=== PATIENT | female | born 1975 | race Caucasian/White ===

== ENCOUNTER 2017-01-11 07:46 | Day surgery (SDC) | payer OTHER ==
--- NOTE | 2017-01-10 09:50 | PCM.HPSURG ---
Subjective Date of Service: December 27, 2016 Referring Provider: Admitting Physician: Primary Care Physician: Tasha Freitas Attending Physician: Reji Drake MD Chief Complaint SEE BELOW History of Present Illness Patient: Aurora Doshi Date of : 1975 Visit Type: Pre Op Visit Date: 12/27/2016 09:45 AM This 41 year old female presents for Preop MIS Right Part Hemilami/Microdisc/ Decompress S1. History of Present Illness: 1. Preop MIS Right Part Hemilami/Microdisc/Decompress S1 Aurora Doshi is a 41 year old female referred by Primary Care Provider (PCP) Saji HARRIS who presents today's date 12/27/2016 for a preoperative type of appointment concerning the decision for surgery involving minimally invasive surgery approaching from the right with L5-S1 partial hemilaminectomy, right L5- S1 microdiscectomy & right S1 lateral recess decompression secondary to a diagnosis of right L5-S1 herniated disc, lumbar radiculopathy with right S1 lateral recess stenosis with related complaints of persistent, intractable, & debilitating lower back pain radiating mostly to the right lower extremity with numbness, weakness, & paresthesias. This patient was last seen by Dr. Reji Gaviria M.D. on 11/24/2016 documenting that she is in active and in good health. She had the sudden onset of radiating pain into the right buttock and posterior leg that woke her from sleep on 10/16/2016. She was seen at the urgent care clinic and given an injection of Toradol and sent home with muscle relaxants that failed to control her S1 radicular pain. The patient reported constant pain in the right buttock and posterior leg with episodes of shooting pain starting in the right buttock and running down the posterior leg and into the right heel has now improved only somewhat but is continuing to be persistent.. She developed numbness and paresthesias in an S1 distribution from the buttock to the heel that was most dense in the right heel. The right S1 numbness and paresthesias, started approximately one week after the onset of radicular pain. Because of the severity of the right leg radicular pain she return to the urgent care clinic and was given additional medications, Vicodin and muscle relaxants that helped take the edge of the right S1 radicular pain. She was seen by her primary care provider and noted to have weakness of right ankle plantar flexion and could not stand on her right toes. An MRI scan lumbar spine was obtained 11/04/2016 showing a large disc herniation on the right side at L5-S1 compressing the right S1 root. She was referred urgently to this clinic because of the size of the disc herniation and a progression of numbness and weakness involving the S1 distribution. According to Dr. Drake the patient has lumbar radiculopathy due to lumbar intravertebral disc disorder involving a large disc herniation on the right side at L5-S1, compressing the S1 nerve root & presenting with symptoms of right S1 radiculopathy. He indicated that there is evidence of nerve injury with loss of sensation at the S1 distribution & right ankle weakness to plantar flexion. Consequently because of the size of the disc herniation and presentation he recommended urgent surgical intervention to decompress the nerve root & expedited scheduling of minimally invasive lumbar surgical decompression surgery. Dr. Drake & the patient discussed all the risks and benefits associated with procedure as well as reasonable expectations with regards to surgical outcomes & the patient elected to proceed with surgery as planned. The patient denies any related acute loss of control of bowel or bladder function, saddle paresthesia or anesthesia. The patient has a reported pertinent past medical, surgical, family, & social history for no surgical history, obesity, hypertension, eczema, frequent headaches, & smokes 1 pack per day; with no other then the above known positive history &/or review of all other organ systems. The patient's related complaints have been a serious detriment to their happiness and activities of daily living. Having failed conservative treatment the patient presents today for their decision for surgery appointment involving minimally invasive surgery approaching from the right with L5-S1 partial hemilaminectomy, right L5-S1 microdiscectomy & right S1 lateral recess decompression for treatment of right L5-S1 herniated disc, with lumbar radiculopathy & right S1 lateral recess stenosis; related to persistent, intractable, & debilitating lower back pain radiating to the right lower extremity with numbness, weakness, & paresthesias. The procedure is scheduled to be performed by Dr. Reji Drake M.D. on 01/12/2016. Problem List: Problem Description Upper back strain Astigmatism Low back strain Medical/Surgical/Interim History Reviewed, no change. Last detailed document date:12/27/2016. Family History: Reviewed, no changes. Last detailed document date:12/27/2016. Social History (Reviewed, updated) 12/27/2016 Tobacco use reviewed. Preferred language is Yemeni. The patient does not need an heavy equipment diesel mechanic. Marital Status/Family/Social Support Currently unknown. Smoking status: Current every day smoker. Smoking Status Use Status Type Smoking Status Years Used Total Pack Years yes Cigarette Current every day smoker 20.00 10.00 There is passive smoke exposure. Tobacco type: Cigarette CAFFEINE The patient uses caffeine - 1 cup a day. Allergies: Ingredient Reaction Medication Name Comment NO KNOWN ALLERGIES Reviewed, no changes. Review of Systems System Neg/Pos Details MS Positive Muscle weakness. Integumentary Negative Mrsa and rash. Psych Negative Anxiety and depression. Neuro Negative Dizziness, headache and seizures. ENMT Negative Hearing loss. GI Negative Abdominal pain, constipation, diarrhea, nausea and vomiting. Cardio Negative Chest pain, irregular heartbeat/palpitations, leg swelling and pacemaker. MS Negative Back pain and bone/joint symptoms. Endocrine Negative Weight gain and weight loss. Respiratory Negative Dyspnea, apnea and wheezing. Constitutional Negative Chills and fever. Luis Manuel/Lymph Negative Blood clots. Eyes Negative Double vision and vision loss. Negative Dysuria, urge incontinence and urinary incontinence. Vital Signs Height Time ft in cm Last Measured Height Position % 9:43 AM 5.0 9.00 175.26 12/03/2013 Weight/BSA/BMI Time lb oz kg Context % BMI kg/m2 BSA m2 9:43 AM 249.50 113.171 dressed with shoes 36.84 2.35 Blood Pressure Time BP mm/Hg Position Side Site Method Cuff Size 9:43 AM 139/91 sitting left wrist automatic adult Temperature/Pulse/Respiration Time Temp F Temp C Temp Site Pulse/min Pattern Resp/ min 9:43 AM 98.7 37.1 83 regular Pain Scale Time Pain Score Method 9:43 AM 3/10 Numeric Pain Intensity Scale Measured By Time Measured by 9:43 AM Shweta Wise MA Screening Summary:o The following were reviewed: tobacco use, alcohol use and caffeine use Physical Exam Exam Findings Details Comments WD/WN, obese female who is AO x 3, cooperative & appears to be in NAD w/ language & speech that is intact & fluent. There is no evidence of recent or remote memory impairment. The patient's knowledge is appropriate for age & level of education w/ a pleasant affect & euthymic mood. Ambulates w/ no difficulty. NC/AT, PERRL, EOMI, w/o facial droop, hearing grossly intact, nostrils patent, oral cavity and pharynx normal. Neck supple, w/o LAD or thyromegaly. Heart reveals RRR w/o audible murmurs Lungs CTAB Abdomen is obese NT/ND Improved antalgic gait favoring right leg + right Straight Leg Raise, Neg Patricks DTRs 2+ at the knees, absent at the ankles Motor strength is 5-/5 right ankle toe standing, & able to stand on her right toe is Other motor groups are 5/5 throughout in LEs Diminished sensation right S1 dermatomal distribution & the other dermatomes are intact Assessment/Plan # Detail Type Description 1. Assessment Lumbar radiculopathy (M54.16). 2. Assessment Preoperative examination (Z01.818). Patient Plan We including your Attending Surgeon have discussed the risks and benefits associated your scheduled procedure which you have verbally acknowledged understanding including but not limited to the possibility of an outcome that we are unable to predict or was not mentioned. 1. You are scheduled for a minimally invasive surgery approaching from the right with L5-S1 partial hemilaminectomy, right L5-S1 microdiscectomy & right S1 lateral recess decompression with Dr. Reji Drake M.D. at [facility] on 01/11/2017. 2. Check in time is 11:30 AM. Also please ignore instructions below if told otherwise by your preadmission nurse or if you do not take the medications listed below. 3. Nothing to eat after midnight the night before surgery. You may take all of your "approved" medications with small sips of water. Remember to take your a.m. hypertension medication if it is a beta brooke and ends in "olol. Otherwise ask your doctor if you need to hold your a.m. hypertension medication. 4. No aspirin, ibuprofen, Naprosyn, or other NSAIDs starting 7 days prior to surgery. 5. Please stop Warfarin/Coumadin or other blood thinners such as Plavix, Aggrenox, or Xarelto 7 days prior to your surgical procedure and follow specific instructions from your prescribing provider. 6. Please stop Lovenox bridging in the morning one day prior to procedure. 7. Please stop Suboxone/Buprenorphine at least 4 days prior to procedure. 8. Go to the hospital today to get her preoperative testing done. Take the order form to the surgery desk on the second floor of the hospital, [facility] (main entrance next to the emergency entrance). I will notify you if there is any test results that require further workup prior to surgery. 9. Follow the instructions you were given today, use the cleansing cloths the night before as well as the morning of her surgery. 10. If you are prescribed inhalers, CPAP or BiPAP machines you use at home bring along with you to the hospital. 11. ONLY If you take medications for Diabetes: If you have an insulin pump continue lowest (typically night-time) basal rate into the a.m. If you do not have a pump check h your a.m. blood sugar and hold insulin if BS less than 100. If you are taking long-acting, intermediate acting (NPH) or 70/30 preparation : Take half on day of procedure. If you are taking ultra long-acting insulin such as glargine, Lantus either at night or in the a.m. continue as scheduled ( including day of surgery). If you take short acting regular insulin (insulin not delivered via pump) discontinue on day of procedure. 12. Please call if you have any questions before your surgery: [phone]. Today's instructions/counseling include(s) Pre-operative instructions given to the patient and or legal videotape sales representative(s) orally and in writing. 13. Our office will contact you if there are any test results that require further workup prior to surgery. Provider Plan The patient's history and examination as well as radiological findings were reviewed with Dr. Reji Drake M.D. and conveyed the patient in detail. The findings are consistent with right L5-S1 herniated disc with lumbar radiculopathy & right S1 lateral recess stenosis and are most likely the cause of the patient's persistent, intractable, & debilitating lower back pain radiating to the right lower extremity with numbness, weakness, & paresthesias. The patient has failed extensive conservative treatment for this condition. The treatment options were discussed with the patient. The options include attempt to live with the condition, reattempt conservative treatment, try a pain management intervention / injection or consider a surgical intervention. We are not extremely optimistic that further conservative treatment, pain management intervention and/or injection will adequately resolve the patient's symptoms of persistent, intractable, & debilitating lower back pain radiating to the right lower extremity numbness, weakness, & paresthesias. Therefore we recommend minimally invasive surgery approaching from the right with L5-S1 partial hemilaminectomy, right L5-S1 microdiscectomy & right S1 lateral recess decompression. The patient was provided/offered educational materials pertaining to their diagnosis and the above discussed procedure. We discussed the risks and benefits associated with this surgery. A spine model was used to explain the nature of this type of surgery. The risk of the required anesthesia was also mentioned including but not limited to organ failure such as heart attack, pneumonia and stroke even . The risk of this type of surgery was also mentioned. Including but not limited to an unsuccessful outcome, residual symptoms, referred or radiating posterior spinal myofascial inflammatory pain or spasm, post operative instability, instrumentation failure, sensory changes, blood loss, blood clots, wound infection, spinal cord or nerve damage, CSF or lymph leak, damage to neighboring structures such as the, abdominal vasculature, bowel, ureter, and bladder, resulting in temporary or permanent dysfunction, even disability, paralysis, and . The recovery of this type of surgery was also mentioned. There is a 15% chance of recurrent disc herniation with a discectomy. The chances for improvement of the related lumbar radiculopathy symptomology and the right lower extremity at one year is 70-80%. The chances of improvement of local mechanical unrelated lower back pain is 50%. The patient verbalized understanding all the risks and benefits, knowing that it is impossible to predict or guarantee every surgical outcome; and would like to proceed with the above discussed procedure anyways. Surgery is scheduled for 01/11/2017 The standard [facility] preoperative screening tests, medicine restrictions, and logistical protocols apply. Any preoperative testing is within normal limits to undergo the above discussed procedure unless otherwise noted in the medical record. Medications (added, continued or stopped this visit): Start Date Medication Directions Stop Date Aleve 220 mg tablet take 1 tablet by oral route every 12 hours as needed 01/10/2017 cyclobenzaprine 10 mg tablet take 1 tablet by oral route every 8 hours as needed for spasm 10/21/2016 hydrocodone 5 mg-acetaminophen 325 mg tablet take 1 tablet by oral route every 6 hours as needed for pain 10/21/2016 methocarbamol 750 mg tablet take 2 tablet by ORAL route every 12 hours 10/21/2016 naproxen 500 mg tablet take 1 tablet by oral route 2 times every day with food 01/03/2017 Percocet 5 mg-325 mg tablet take 1 - 2 tablet by oral route every 4 - 6 hours as needed for pain 01/10/2017 Percocet 5 mg-325 mg tablet take 1 - 2 tablet by oral route every 4 - 6 hours as needed for pain 10/17/2016 Robaxin 500 mg tablet take 1 tablet by oral route 4 times every day Counseling/Educational Factors: Counseling / educational factors reviewed. Counseling / educational factors reviewed. This is a visit of 60 minutes. 50 minutes were spent counseling. This document may have been created using voice recognition software or other electronic means and may contain inadvertent baker errors. Provider: Basilio POTTER 12/27/2016 11:25 AM Document generated by: Basilio Mccurdy 12/27/2016 11:24 AM CC Providers: Tasha Freitas [address] [facility] [address] [place] [address] [facility] . s r c l i n i c s . o r g Allergy Allergies: Coded Allergies: No Known Allergies (Unverified , 01/04/17) Social History Hx Alcohol Use: Yes Alcoholic Drinks Per Day: holidays only Hx Substance Use: No PMH HEENT History HEENT History: Denies:: Abnormal Airway Cataracts Difficult Intubation Dysphagia Glaucoma Hearing Problem Sinus Problem TMJ Cardiovascular History Cardiovascular History: Denies:: AICD Abdominal Aortic Aneurism Atrial Fibrillation Heart Murmur Hypertension Irregular Heartbeat Pacemaker Peripheral Vascular Rheumatic Fever Respiratory History of Respiratory Problem: No Respiratory History: Denies:: Asthma COPD Cough Emphysema Oxygen Administration Pneumonia Tuberculosis Use of C-PAP Machine Neurological History Hx Neurologic Problems?: Yes Neurological History: Positive for:: Headaches (every 6 months (ocular)) Denies:: Alzheimer's Disease CVA Dizziness Multiple Sclerosis Parkinson's Disease Seizures TIA Gastrointestinal History HX of GI Problems?: No Gastrointestinal History: Denies:: Cirrhosis Diverticulitis Gall Bladder Disease Gastroesphageal Reflux Gastrointestinal Bleeding Heartburn Hepatitis Hiatal Hernia Liver Disease Rectal Bleeding Genitourinary History Hx of Gu Problems?: No Genitourinary History: Denies: Kidney Stones Urinary Tract Infection Female/Male History Reproductive History Female: Denies: Currently ? Problems with Breasts? Skin History Skin History: Denies:: History Skin Disorders? Pressure Ulcers Musculoskeletal History Hx Musculoskeletal Problems?: Yes Musculoskeletal History: Positive for:: Back Injury (lumbar spine current admission problem) Denies:: Fibromyalgia Joint Replacement Myasthenia Gravis Osteoarthritis Rheumatoid Arthritis Systemic Lupus Psycho Social History Hx of Psycho/Social Problems?: No Psycho Social History: Denies:: Anxiety Hx Depression Other History Hx Any Other Health Problems?: Yes Other History: Denies:: Cancer Thyroid Disease Diabetes: No Social History Hx Alcohol Use: YesAlcoholic Drinks Per Day: holidays onlyHx Substance Use: No Basilio Mccurdy PA-C January 10, 2017 09:50
[2017-01-11] VITALS (8 sets, daily range): BP systolic 116–152; BP diastolic 70–96; PULSE 69–91; RESP 14–17; O2SAT 95–100
[~2017-01-11] VITALS: Ht 175.3 cm; Wt 113.6 kg
[~2017-01-11 07:46] MED LIST: Acetaminophen IV 1,000 mg IV ONE; Bacitracin 50,000 unit Inj IRRIGATION ONE; Bupivacaine Liposome 1.3% 20 mL Inj NERVEBLOCK ONE; CeFAZolin Inj 2 GM in IV Premix 1 EACH IV ONE; METH750T3 PO; Thrombin Powder 5,000 Unit TOPICAL ONE
[2017-01-11] MEDS ORDERED: HYDROmorphone 2 mg/mL Inj ONE (07:47)
[2017-01-11] MEDS ORDERED: Dexamethasone 4 mg/mL Inj ONE (07:47)
[2017-01-11] MEDS ORDERED: Rocuronium 10 mg/mL 5 mL Inj ONE (07:47)
[2017-01-11] MEDS ORDERED: fentaNYL-PF 50 mCg/mL 2 mL Inj ONE (07:47)
[2017-01-11] MEDS ORDERED: Ondansetron 2 mg/mL 2 mL Inj ONE (07:47)
[2017-01-11] MEDS ORDERED: Ketamine 10 mg/mL 20 mL Inj ONE (07:47)
[2017-01-11] MEDS ORDERED: MetoCLOpramide 5 mg/mL 2 mL Inj ONE (07:47)
[2017-01-11] MEDS ORDERED: Propofol 10,000 mCg/mL 20 mL Inj ONE (07:47)
[2017-01-11] MEDS ORDERED: ACET325T51 PO (08:02)
[2017-01-11] MEDS ORDERED: CeFAZolin Inj 2 gm / 50mL D5W IV ONE (08:05)
[2017-01-11] MEDS: Lactated Ringer's 1,000 ML IV SCH ×2 (08:05→11:08)
--- NOTE | 2017-01-11 10:47 | PCM.HPANE ---
Patient Data Surgeon Admitting Provider: Attending Provider:Reji Drake MD Primary Care Physician:Tasha Freitas Other Provider:Julienne Fierro Anesthesia Reason for Visit Radiculopathy Due To Lumbar Intervertebral Disc Di Ht/WT & BMI Height (Feet): 5 Height (Inches): 9.00 Weight (Kilograms): 113.6 Body Mass Index 37.00 Allergies Coded Allergies: No Known Allergies (Unverified , 01/04/17) Past Anesthesia History Anesthesia History: Denies:: Abnormal Airway, Anesthesia Reactions (no prior surgery), Difficult Intubation, Fam Anesthesia Reaction, Fam Malignant Hypertherm Diabetes History Hx Diabetes?: No Current Bedside Blood Glucose: 103 MRSA MRSA: No Medications Hypertension Medication: No Home Meds Incl Beta Ash: No Reported Medications Acetaminophen 325 Mg [id number] Mg PO Q4H PRN For Fever Ref 0 01/11/17 Methocarbamol 750 Mg Tablet1,500 Mg PO Q12H PRN For Spasm Ref 0 01/04/17 History History of ENT Problems?: No HEENT History: Denies:: Abnormal Airway Cataracts Difficult Intubation Dysphagia Glaucoma Hearing Problem Sinus Problem TMJ Denture Type: None Teeth Condition: Within Normal Limits Hx of Heart Problems?: No Cardiovascular History: Denies:: AICD Abdominal Aortic Aneurism Atrial Fibrillation Cardiac Surgery Chest Pain Congestive Heart Failure Coronary Artery Disease Edema Heart Murmur Hypertension Irregular Heartbeat Pacemaker Peripheral Vascular Rheumatic Fever Thrombophlebitis Valvular Heart Disease Hx of Respiratory Problem?: No Respiratory History: Denies:: Asthma COPD Cough Emphysema Oxygen Administration Pneumonia Tuberculosis Use of C-PAP Machine Hx Neurologic Problems?: Yes Neurological History: Positive for:: Headaches (every 6 months (ocular)) Denies:: Alzheimer's Disease CVA Dizziness Multiple Sclerosis Parkinson's Disease Seizures TIA Hx of GI Problems?: No Hx of Problems?: No Genitourinary History: Denies:: Kidney Stones Urinary Tract Infection Female Hx: Denies:: Currently Problems with Breasts? Skin History: Denies:: History Skin Disorders? Pressure Ulcers Hx Musculoskeletal Problems?: Yes Musculoskeletal History: Positive for:: Back Injury (lumbar spine current admission problem) Denies:: Fibromyalgia Joint Replacement Myasthenia Gravis Osteoarthritis Rheumatoid Arthritis Systemic Lupus Hx of Psycho/Social Problems?: No Psycho Social History: Denies:: Anxiety Hx Depression Hx Surgeries?: No (no prior surgery) Hx Any Other Health Problems?: Yes Other History: Denies:: Cancer Thyroid Disease History Blood Transfusions: Positive for:: Accept Blood Products? Denies:: Blood Transfusions Hx Diabetes: NoBedside Blood Glucose: 103 Hx Alcohol Use: YesAlcoholic Drinks Per Day: holidays onlyHx Substance Use: NoHave You Smoked inLast 12 mo: Yes Stop/Bang Treated for Sleep Apnea?: No Do You Have a CPAP Machine?: No S-Snoring: Do You Snore Loudly: No T-Tired: feel tired, fatigued: No O-Obsered: Observed not breath: No P-Blood Pressure: treated: No B- Body Mass Index > 35 kg/m2: Yes A- Age over 50: No N- Neck Large Circumference: No G- Gender Male: No RONNIE Total Score: 1 RONNIE Risk Assessment: Low Risk, <3 Yes Risk Assessment Category Category 1A: Patient has history of documented sleep apnea, and HAS NOT received any narcotic, sedative or anesthesia administration during this stay. Category 1B: Patient has history of documented sleep apnea, and HAS received any narcotic , sedative or anesthesia administration during this stay Category 2: Patient has SUSPECTED Obstructive Sleep Apnea, and HAS received any narcotic , sedative or anesthesia administration during this stay. Category 3: Patient has SUSPECTED Obstructive Sleep Apnea and HAS NOT received narcotic, sedative or anesthesia administration during this stay. Category 4: Outpatient in Procedural Areas with known sleep apnea or who screen positive for High Risk via the STOP/BANG questionnaire. Exam Exam Vital Signs Vital Signs Date Time Temp Pulse Resp B/P Pulse Ox O2 Delivery O2 Flow Rate FiO2 01/11/17 08:27 36.3 84 16 140/90 99 Room Air General Appearance: Oriented X3 HEENT/AIRWAY: MP 2 Lungs: Normal Air Movement Heart: Regular Rate/Rhythm Meds/Labs/Diagnostics Admission Meds Current Medications Acetaminophen 1000 mg/Premix 100 ml @ 400 mls/hr 01 ONCE IV Last administered on 01/11/17 10:11; Start 01/11/17 at 01:00; Stop 01/11/17 at 01:14 ; Status DC Lactated Ringer's (Lr) 1,000 ml @ 120 mls/hr Q8H20M IV Last administered on 08:05; Start 01/11/17 at 05:00; Stop 01/11/17 at 13:19 Diphenhydramine HCl (Benadryl Inj) 50 mg STK-MED ONCE .ROUTE Last administered on 01/11/17t 09:45; Start 01/11/17 at 09:35; Stop 01/11/17 at 09:38; Status DC Bedside Blood Glucose: 103 Plan Impression Patient chart reviewed, patient interviewed and anesthestic plan with risks, benefits, and alternatives discussed, and informed consent obtained. Anesthetic Plan: GA Bene/Risks/Altern/Consents: Yes HP Complete Prior to Induction: Yes Krishna Rojas MD January 11, 2017 10:47
[2017-01-11] MEDS ORDERED: Bacitracin 50,000 unit Inj ONE (10:57)
[2017-01-11] MEDS ORDERED: Thrombin Powder 5,000 Unit TOPICAL ONE (10:58)
[2017-01-11] MEDS ORDERED: Bupivacaine Liposome 1.3% 20 mL Inj ONE (11:09)
[2017-01-11] MEDS ORDERED: MetoCLOpramide 5 mg/mL 2 mL Inj IVPUSH PRN (11:35)
[2017-01-11] MEDS ORDERED: EPHEDrine Sulfate 50 mg/mL Inj IVPUSH PRN (11:35)
[2017-01-11] MEDS ORDERED: Dexamethasone 4 mg/mL Inj IVPUSH PRN (11:35)
[2017-01-11] MEDS ORDERED: Lactated Ringer's 500 ML IV PRN (11:35)
[2017-01-11] MEDS ORDERED: Ondansetron 2 mg/mL 2 mL Inj IVPUSH PRN ×2 (11:35→14:50)
[2017-01-11] MEDS ORDERED: fentaNYL-PF 50 mCg/mL 2 mL Inj IVPUSH PRN (11:35)
[2017-01-11] MEDS ORDERED: HYDROmorphone 1 mg/mL Inj IVPUSH PRN ×2 (11:35→14:50)
[2017-01-11] MEDS ORDERED: Lactated Ringer's 1,000 ML IV SCH (11:35)
[2017-01-11] MEDS ORDERED: Phenylephrine 10,000 mCg/mL Inj IVPUSH PRN (11:35)
[2017-01-11] MEDS ORDERED: Bupivacaine-MPF 0.5% 30 mL Inj INFILTRATE ONE (11:50)
--- NOTE | 2017-01-11 12:20 | DRSVH ---
PROCEDURE: X-RAY LUMBAR SPINE, 2 OR 3 VIEW INDICATIONS: L5-S1 HEMILAMI, INTRAOPERATIVE LOCALIZATION IMAGE TECHNIQUE: 2 views of the lumbar spine were acquired. COMPARISON: None. FINDINGS: 2 intraoperative images demonstrate a surgical port posterior to L5-S1. IMPRESSION: Surgical port posterior to L5-S1. Dictated by: Oc Villalpando M.D. on 01/11/2017 at 12:17 Approved by: Oc Villalpando M.D. on 01/11/2017 at 12:18
--- NOTE | 2017-01-11 14:08 | OP ---
[address] [address] OPERATIVE REPORT PATIENT: GEN SENA : 1975 MR#: [id number] ADMIT: 01/11/2017 JOB ID: [id number] DATE OF SURGERY: 01/11/17 PREOPERATIVE DIAGNOSIS(ES): Lumbar disk herniation, lateral recess stenosis and lumbar radiculopathy. POSTOPERATIVE DIAGNOSIS(ES): Lumbar disk herniation, lateral recess stenosis and lumbar radiculopathy. PROCEDURE: Minimally invasive surgery, right L5-S1 partial hemilaminectomy with right L5-S1 microdiskectomy and right S1 lateral recess decompression. SURGEON: Reji Drake M.D. BRUSH MATERIAL PREPARER: Francisco Morrison ANESTHESIA: General with Dr. Krishna Rojas ESTIMATED BLOOD LOSS: 25 cc. DRAINS: None. COMPLICATIONS: None. INDICATIONS: This patient presented initially with right S1 radicular pain that subsided and she had a dense S1 sensory deficit. An MRI scan confirmed a large disk herniation on the right side at L5-S1 compressing the right S1 root and causing lateral recess stenosis. DESCRIPTION OF PROCEDURE: This patient was taken to the operating room, January 11, 2017. She was placed under general anesthesia, then placed prone on a Edwin frame and prepped and draped sterile. A spinal needle was then placed on the right side at the L5-S1 level and its position confirmed with the C-arm in the lateral position. The skin was then infiltrated with 0.5% plain Marcaine and an incision measuring 2 cm was placed just to the right of midline over the L5-S1 level. The incision was carried down sharply through the skin and subcutaneous tissues. Hemostasis was achieved with the monopolar. Progressive dilators were then placed under fluoroscopic guidance and directed to the lamina of L5 at the L5-S1 level. The operating tube is 22 mm in diameter and was 8 cm in length to reach the lamina. This operating tube was then attached to a connecting arm that was secured to the operating table side rail. The microscope was then brought into position, sighting down the operating tube and the soft tissue was cauterized exposing the most caudal aspect of the L5 lamina. The L5 lamina was then partially resected with the Kerrison and the L5-S1 facet was thinned along its medial edge and partially resected with the Kerrison punch. This decompressed the lateral recess of the S1 root. A free disk fragment was attached to the undersurface of the S1 root and it was possible to remove the free fragment and mobilize the S1 root medially. This exposed a large disk protrusion. The annulus was then incised and the protrusion was resected with the reverse angle curette. Part of the disk was adherent to the vertebral bodies of L5 and S1 at the disk space. The disk was detached with the reverse angle curette. Additional degenerative disk material was removed from the L5-S1 disk space. The disk space was then irrigated with antibiotic solution and the S1 root was followed out towards the foramen unroofing and decompressing the lateral aspect of the S1 root with the Kerrison's. At this point, the wound was irrigated and inspected for hemostasis. Gelfoam was left in the partial hemilaminectomy defect. The operating tube was removed and the patient received both deep injections and superficial injections of Exparel, a total of 40 cc of Exparel. The subcutaneous tissues were then approximated with 0 Vicryl and the skin was closed with 2-0 Vicryl using inverted interrupted sutures. Steri-Strips were applied to the skin, which was dressed with Telfa, gauze and tape.
--- NOTE | 2017-01-11 14:47 | PCM.DISURG ---
Surgical Discharge Instruction Date of Service January 11, 2017 Dates of Hospitalization Date of Hospital Admission Outpatient with bed status 01/11/2017 Providers Admitting Physician: Primary Care Physician: Tasha Freitas Attending Physician: Reji Drake MD Discharge Diagnosis Discharge Diagnosis Status post minimally invasive surgery involving right L5-S1 partial hemilaminectomy, right L5-S1 microdiscectomy, with right S1 nerve root & lateral recess decompression Post Operative diagnosis Status post minimally invasive surgery involving right L5-S1 partial hemilaminectomy, right L5-S1 microdiscectomy, with right S1 nerve root & lateral recess decompression Additional Instructions Discharge Instructions Minimally Invasive Lumbar Spinal Surgical Microdiscectomy & Decompression Instructions What is my recovery like? Patient's usually go home the same day of surgery. A lumbar brace is worn for comfort only. What are my restrictions? You should not lift anything heavier than five pounds. You should not perform any excessive bending from the waist or twisting movements. Can I Shower? You may shower when you go home. You must remove the outside dressing on the 7th day after surgery, or change as needed if soiled or saturated (replacing new sterile gauze & water proof dressing) otherwise leave alone. The remaining small pieces of tape (steri-strips) directly on top of the incision may get wet. The steri-strips will fall off on their own. Can I drive? No, you should not drive until specifically given permission from your Doctor in a follow up appointment. Most Patient's can drive in 2-3 weeks if they are not taking narcotic pain medications or muscle relaxers. You may ride in a car, but should avoid trips longer than two hours in duration. When can I return work / sports? Your Doctor will discuss your return to work with you on your first postoperative follow-up appointment. Most patients may return to work within 2 weeks for sedentary jobs. More physically demanding jobs may require 3-6 months of healing before such work can be considered. When should I call the doctor? You should call your Doctor or go to the Emergency Department if you develop chest pain, shortness of breath, a temperature greater than 101.5 F, severe uncontrolled pain or weakness, loss of bowel or bladder function, choking, lots or drainage, pus discharge or constipation. Instructions Regarding Comfort & Pain Medication Use: During the recovery period , even with the use of pain medication, you may experience pain at the site of surgery. You may also have the same type of pain you had before surgery. Please use your pain scale as a guide for taking your pain medication. When your pain is greater than 4 out of 10, or when your pain reaches your personal tolerable level of pain, take your pain medication as prescribed. Use your pain medication on an 'as needed' basis. This means if your pain level is within your tolerable level of pain you DO NOT need to take the medication. As you get better, you will notice you can increase the time interval between doses and decrease the number of tablets you are taking, gradually taking less and less pain medication. Taking pain medication when it is not necessary (for example when your pain is tolerable or acceptable) can result in dangerous side effects and over- sedation. Signs and symptoms of over-sedation include: drowsiness, excessive sleeping, slow or difficult breathing, slurred speech, impaired thinking, confusion, impaired motor coordination. If you have any of these symptoms stop taking the medication and immediately contact your doctor. IF SYMPTOMS ARE LIFE THREATENING CALL 911. To decrease pain and swelling, frequently apply an ice pack for 20 min intervals with at least one hour off. When to take Acetaminophen for pain? If you don't have liver problems, allergies and/or Tylenol is not in your current pain medication. Take Extra Strength Tylenol 500mg 2 tabs by mouth every 6 hours as needed for pain. DO NOT EXCEED 8 TABS PER DAY. Follow Up Plan Follow Up Plan Follow-up with physician commercial lines assistant in outpatient neurosurgical clinic in 1 week for wound check. Follow-up Provider (F9): Basilio Mccurdy PA-C Additional Information Attending Statement All documentation reviewed & orders authorized by Dr. Reji Drake M.D. Basilio Mccurdy PA-C January 11, 2017 14:47
[2017-01-11] MEDS ORDERED: 0.9% Sodium Chloride 1,000 ML IV SCH (14:48)
[2017-01-11] MEDS ORDERED: Magnesium Hydroxide 10 mL Oral Concentration PO PRN (14:50)
[2017-01-11] MEDS ORDERED: hydrOXYzine Pamoate 25 mg Capsule PO PRN (14:50)
[2017-01-11] MEDS ORDERED: Polyethylene Glycol (PEG) 17 Gm Powder PO PRN (14:50)
[2017-01-11] MEDS ORDERED: Sodium Biphos-Phos 133 mL Enema RECTAL PRN (14:50)
[2017-01-11] MEDS ORDERED: Senna-Docusate 8.6-50 mg Tablet PO PRN (14:50)
--- NOTE | 2017-01-11 14:54 | PCM.ANEP1 ---
Post Anesthesia PACU Phase 1 Assessment Vital Signs Vital Signs Date Time Temp Pulse Resp B/P Pulse Ox O2 Delivery O2 Flow Rate FiO2 01/11/17 14:30 91 17 126/72 96 Room Air 01/11/17 14:15 88 17 134/89 95 Room Air 01/11/17 14:10 71 14 152/96 100 Simple Mask 10 01/11/17 14:05 69 15 147/82 100 Simple Mask 10 01/11/17 14:00 37.3 71 16 143/86 100 Simple Mask 10 01/11/17 08:27 36.3 84 16 140/90 99 Room Air Anesthetic Administered: GA Level of Alertness: Awake, talking Pain: No Nausea or Vomiting: No CV Function & Hydration Stable: Yes Airway Device: Lungs: Normal Air Movement PACU Phase 2 Assessment Patient Instructions Provided: N/A Krishna Rojas MD January 11, 2017 14:54
[2017-01-11] MEDS ORDERED: Senna-Docusate 8.6-50 mg Tablet PO SCH (20:30)
== END 2017-01-11 23:59 | disposition home or self-care (01) ==
LOC: SAS 07:46
PROVIDERS: ATTEND Neurological Surgery
DX: M51.16 Intervertebral disc disorders with radiculopathy, lumbar region (principal); M48.08 Spinal stenosis, sacral and sacrococcygeal region; I10 Essential (primary) hypertension; F17.210 Nicotine dependence, cigarettes, uncomplicated; E66.9 Obesity, unspecified; Z68.36 Body mass index [BMI] 36.0-36.9, adult
CPT/HCPCS: 63030; 72100; 76000; J0131; J0690; J1100; J1170; J1200; J2250; J2405; J2765; J3010; J7120